=== PATIENT | male | born 1940 | race Asian ===

== ENCOUNTER 2017-02-18 15:05 | Outpatient (CLI) | payer MEDICARE ==
[2017-02-18 19:36] LABS: BASOPHILS % (AUTO) 0.4 %; EOSINOPHILS # (AUTO) 0.1 10^3/uL (0.0-0.7); EOSINOPHILS % (AUTO) 1.3 %; HCT - HEMATOCRIT 50.1 % (42.0-52.0); HGB - HEMOGLOBIN 16.5 g/dL (14.0-18.0); LYMPHOCYTES # (AUTO) 1.8 10^3/uL (1.5-3.5); LYMPHOCYTES % (AUTO) 35.9 %; MEAN CORPUSCULAR HGB CONC 32.9 g/dL (32.0-36.0); MEAN CORPUSCULAR VOLUME 88.2 fL (80.0-94.0); MEAN PLATELET VOLUME 8.8 fL (7.4-11.4); MONOCYTES # (AUTO) 0.9 10^3/uL (0.0-1.0); MONOCYTES % (AUTO) 18.3 %; NEUTROPHILS # (AUTO) 2.2 10^3/uL (1.5-6.6); NEUTROPHILS % (AUTO) 44.1 %; NUCLEATED RED BLOOD CELLS AUTO 0.1 /100WBC; RED BLOOD COUNT 5.68 10^6/uL (4.70-6.10); UNCORRECTED WHITE BLOOD COUNT 4.9 x10^3/uL; WHITE BLOOD COUNT 4.9 x10^3/uL (4.8-10.8)
[2017-02-18 19:45] LABS: ALBUMIN/GLOBULIN RATIO 1.1 (1.0-2.2); BILIRUBIN,TOTAL 0.5 mg/dL (0.2-1.0); BUN - BLOOD UREA NITROGEN 20 mg/dL (6-20); CALCIUM 8.8 mg/dL (8.5-10.3); CARBON DIOXIDE - CO2 28 mmol/L (21-32); CHLORIDE 94 mmol/L (101-111); CHOL/HDL RATIO 3.4 (<5.0); CHOLESTEROL 168 mg/dL; CREATININE 1.1 mg/dL (0.6-1.2); GFR - MDRD 65 (>89); GLUCOSE 125 mg/dL (70-100); HDL CHOLESTEROL 50 mg/dL; LDL/HDL RATIO 1.7 (<3.6); POTASSIUM 3.7 mmol/L (3.5-5.0); SODIUM 133 mmol/L (135-145); TOTAL PROTEIN 7.9 g/dL (6.7-8.2); TRIGLYCERIDES 159 mg/dL; URIC ACID 5.1 mg/dL (2.6-7.2); VLDL CHOLESTEROL 32 mg/dL
[2017-02-18 20:01] LABS: HEMOGLOBIN A1C 0.99 g/dL
== END 2017-02-18 15:06 | disposition home or self-care (01) ==
LOC: LAB.WCP 15:05
PROVIDERS: ATTEND Family Medicine
DX: R73.9 Hyperglycemia, unspecified (principal); E78.5 Hyperlipidemia, unspecified; M10.00 Idiopathic gout, unspecified site; C61 Malignant neoplasm of prostate
CPT/HCPCS: 36415; 80053; 80061; 83036; 84550; 85025

== ENCOUNTER 2020-07-08 19:29 | Emergency (ER) | payer MEDICARE ==
[2020-07-08] MEDS ORDERED: SODIUM CHLORIDE 0.9% 1,000 ML IV STA (20:32)
[2020-07-08 20:38] LABS: BASOPHILS % (AUTO) 0.4 %; EOSINOPHILS % (AUTO) 0.7 %; HCT - HEMATOCRIT 44.2 % (42.0-52.0); HGB - HEMOGLOBIN 14.3 g/dL (14.0-18.0); LYMPHOCYTES # (AUTO) 1.4 10^3/uL (1.5-3.5); LYMPHOCYTES % (AUTO) 25.3 %; MEAN CORPUSCULAR HEMOGLOBIN 29.2 pg (27.0-31.0); MEAN CORPUSCULAR HGB CONC 32.4 g/dL (32.0-36.0); MEAN CORPUSCULAR VOLUME 90.4 fL (80.0-94.0); MEAN PLATELET VOLUME 10.4 fL (7.4-11.4); MONOCYTES # (AUTO) 0.5 10^3/uL (0.0-1.0); MONOCYTES % (AUTO) 9.1 %; NEUTROPHILS # (AUTO) 3.7 10^3/uL (1.5-6.6); NEUTROPHILS % (AUTO) 64.1 %; PLT - PLATELET COUNT 181 10^3/uL (130-450); RED BLOOD COUNT 4.89 10^6/uL (4.70-6.10); RED CELL DISTRIBUTION WIDTH 13.5 % (12.0-15.0); WHITE BLOOD COUNT 5.7 x10^3/uL (4.8-10.8)
--- NOTE | 2020-07-08 20:51 | ED Physician Documentation ---
History of Present Illness - Stated complaint Stated Complaint: LIGHTHEADED - Chief complaint Chief Complaint: Neuro - History obtained from History obtained from: Patient - History of Present Illness Timing: Today Pain level max: 0 Pain level now: 0 - Additonal information Additional information: Patient is an 80-year-old male who presents to the emergency department stating he has had intermittent lightheadedness for the past few days. He does not feel dizzy. Does not feel off balance, does not feel near syncopal. He states that it feels like "when you try to put on a new pair of glasses". He is unable to describe this further. It does not bother him when he takes his 5 to 6 mile daily walks. Does not bother him when he is working in the garden. He states he just occasionally feels it. His recently had a cardiac arrest and cardiac event. He states that he has been under stress and has not been eating or drinking as much as he should. No chest pain. No shortness of breath. No numbness or tingling. No focal neurological deficits. Review of Systems Ten Systems: 10 systems reviewed and negative Constitutional: denies: Fever, Chills GI: denies: Vomiting, Diarrhea Skin: denies: Rash Musculoskeletal: denies: Neck pain, Back pain Neurologic: denies: Headache PD PAST MEDICAL HISTORY - Past Medical History Cardiovascular: High cholesterol Respiratory: Asthma Endocrine/Autoimmune: None GI: Ulcers, Colon polyps : Benign prostate hypertrophy, Nocturia, Other HEENT: None Psych: Claustrophobia Musculoskeletal: None Derm: Eczema - Past Surgical History Past Surgical History: Yes General: Colonoscopy, EGD HEENT: Cataracts, Detached retina repair - Present Medications Home Medications: Ambulatory Orders Medication Instructions Recorded Confirmed Beclomethasone 80 Mcg [Qvar 80] 1 - 2 puffs INH BID 02/11/13 07/08/20 Finasteride [Proscar] 5 mg PO DAILY 02/11/13 07/08/20 Montelukast [Singulair] 10 mg PO DAILY 02/11/13 07/08/20 Simvastatin 20 mg PO DAILY 02/11/13 07/08/20 Tamsulosin [Flomax] 0.4 mg PO DAILY 02/11/13 07/08/20 - Allergies Allergies/Adverse Reactions: Allergies Allergy/AdvReac Type Severity Reaction Status Date / Time Sulfa (Sulfonamide Allergy FEVER/RASH Verified 07/08/20 19:35 Antibiotics) SILK TAPE Allergy Rash Uncoded 07/08/20 19:35 - Social History Does the pt smoke?: No Smoking Status: Never smoker Does the pt drink ETOH?: Yes Does the pt have substance abuse?: No - Immunizations Immunizations are current?: Yes - POLST Patient has POLST: No PD ED PE NORMAL - Vitals Vital signs reviewed: Yes - General General: Alert and oriented X 3, No acute distress - HEENT HEENT: PERRL, Ears normal, Moist mucous membranes - Neck Neck: Supple, no meningeal sign - Cardiac Cardiac: RRR, Strong equal pulses - Respiratory Respiratory: No respiratory distress, Clear bilaterally - Abdomen Abdomen: Soft, Non tender, Non distended - Derm Derm: Warm and dry - Extremities Extremities: No edema - Neuro Neuro: Alert and oriented X 3, lab technician 2-12 intact, No motor deficit, No sensory deficit, Normal speech - Psych Psych: Normal mood, Normal affect - Free text exam Free text exam: NIH stroke scale of 0. Normal gait. Normal cerebellar test Results - Vitals Vitals: Vital Signs - 24 hr 07/08/20 07/08/20 07/08/20 19:35 21:19 21:22 Temperature 36.5 C 36.8 C 36.8 C Heart Rate 73 72 72 Respiratory 19 24 22 Rate Blood Pressure 167/62 H 146/70 H 146/70 H O2 Saturation 100 100 100 Oxygen O2 Source Room air - EKG (time done) 1936 Rate: Rate (enter#) (69) Rhythm: NSR Cyclone: Normal Intervals: Normal MO QRS: Normal, LVH Ischemia: Normal ST segments - Labs Labs: Laboratory Tests 07/08/20 07/08/20 07/08/20 19:44 19:57 19:57 WBC 5.7 RBC 4.89 Hgb 14.3 Hct 44.2 MCV 90.4 MCH 29.2 MCHC 32.4 RDW 13.5 Plt Count 181 MPV 10.4 Neut # (Auto) 3.7 Lymph # (Auto) 1.4 L Cache # (Auto) 0.5 Eos # (Auto) 0.0 Baso # (Auto) 0.0 Absolute Nucleated RBC 0.00 Nucleated RBC % 0.0 Sodium 136 Potassium 3.8 Chloride 100 L Carbon Dioxide 25 Anion Gap 11.0 BUN 21 H Creatinine 1.0 Estimated GFR (MDRD) 72 L Glucose 159 H POC Whole Bld Glucose 139 H Calcium 9.3 Total Bilirubin 0.5 AST 25 ALT 19 Alkaline Phosphatase 47 Troponin I High Sens Total Protein 7.1 Albumin 4.5 Globulin 2.6 Albumin/Globulin Ratio 1.7 Lipase 56 H 07/08/20 19:57 WBC RBC Hgb Hct MCV MCH MCHC RDW Plt Count MPV Neut # (Auto) Lymph # (Auto) Cache # (Auto) Eos # (Auto) Baso # (Auto) Absolute Nucleated RBC Nucleated RBC % Sodium Potassium Chloride Carbon Dioxide Anion Gap BUN Creatinine Estimated GFR (MDRD) Glucose POC Whole Bld Glucose Calcium Total Bilirubin AST ALT Alkaline Phosphatase Troponin I High Sens 5.2 Total Protein Albumin Globulin Albumin/Globulin Ratio Lipase PD MEDICAL DECISION MAKING - ED course Complexity details: reviewed results, re-evaluated patient, considered differential, d/w patient ED course: Patient with an elevated BUN to creatinine ratio, given IV fluids and symptoms resolved. Feels much better. Normal cerebellar test. Normal gait. No focal neuro deficits. No evidence of cardiac etiology. Patient counseled regarding signs and symptoms for which I believe and urgent re-evaluation would be necessary. Patient with good understanding of and agreement to plan and is comfortable going home at this time This document was made in part using voice recognition software. While efforts are made to proofread this document, sound alike and grammatical errors may occur. Departure - Departure Disposition: 01 Home, Self Care Clinical Impression: Dehydration Condition: Good Instructions: ED Dehydration Follow-Up: Jonah Haynes DO [Primary Care Provider] - Within 1 week Comments: Follow up with your doctor for further care. Your labs appear to be consistent with dehydration at this time. Drink plenty of water. Discharge Date/Time: 07/08/20 21:41
[2020-07-08 20:53] LABS: ALBUMIN 4.5 g/dL (3.2-5.5); ALBUMIN/GLOBULIN RATIO 1.7 (1.0-2.2); BILIRUBIN,TOTAL 0.5 mg/dL (0.2-1.0); CALCIUM 9.3 mg/dL (8.5-10.3); POTASSIUM 3.8 mmol/L (3.5-5.0); TOTAL PROTEIN 7.1 g/dL (6.7-8.2)
[2020-07-08 21:20] VITALS: BP 146/70
--- OUTSIDE RECORDS SUMMARY | 2020-07-13 02:22 | EXTERNAL MEDICAL SUMMARY RPT | Continuity of Care Document ---
:1940 Demographics Phone Unavailable Preferred Language Unknown Marital Status Unknown Christian Affiliation Unknown Race Unknown Ethnic Group Unknown Author Organization [facility] Address [address] [place] [address] Phone Social History date description facility [phone]
== END 2020-07-08 21:41 | disposition home or self-care (01) ==
LOC: ED 19:29
DX: E86.0 Dehydration (principal)
CPT/HCPCS: 36415; 80053; 83690; 84484; 85025; 93005; 96360; 99284

== ENCOUNTER 2021-01-19 14:53 | Outpatient (CLI) | payer MEDICARE ==
--- NOTE | 2021-01-19 15:24 | XRAY Report ---
PROCEDURE: Ankle 3 View LT INDICATIONS: ANKLE PAIN,LEFT TECHNIQUE: 3 views of the ankle were acquired. COMPARISON: None. FINDINGS: BONES: No acute, displaced fracture or dislocation. The ankle mortise is maintained on these nonstre ssed views. SOFT TISSUES: No focal abnormality. IMPRESSION: 1.No acute osseous abnormality. Reviewed by: Helio Ross MD on 01/19/2021 3:23 PM PDT Approved by: Helio Ross MD on 01/19/2021 3:23 PM PDT Station ID: [id number]
== END 2021-01-19 14:54 | disposition home or self-care (01) ==
LOC: DI 14:53
PROVIDERS: ATTEND Family Medicine
DX: M25.572 Pain in left ankle and joints of left foot (principal)

== ENCOUNTER 2021-02-27 08:15 | Outpatient (CLI) | payer MEDICARE ==
--- NOTE | 2021-02-27 09:16 | XRAY Report ---
PROCEDURE: Ankle 3 View LT INDICATIONS: L ANKLE PX TECHNIQUE: 3 views of the ankle were acquired. COMPARISON: None FINDINGS: Bones: No fractures or dislocations. Ankle mortise is normally aligned. No suspicious bony lesions . Soft tissues: No tibiotalar joint effusion. Achilles tendon appears normal. IMPRESSION: No acute abnormality of the left ankle. Reviewed by: Mark Irwin on 02/27/2021 9:15 AM [facility] Approved by: Mark Irwin on 02/27/2021 9:15 AM [facility] Station ID: [id number]
== END 2021-02-27 23:59 | disposition home or self-care (01) ==
LOC: DI.N 08:15
PROVIDERS: ATTEND Physician Assistant
DX: M25.572 Pain in left ankle and joints of left foot (principal)

== ENCOUNTER 2022-08-30 08:00 | Outpatient (CLI) | payer MEDICARE ==
[2022-08-30 18:29] LABS: MICROALBUM/CREATININE RATIO,UR 4.8 ug/mg (<30.0); MICROALBUMIN,URINE 0.8 mg/dL (0-300.0)
== END 2022-08-30 23:59 | disposition home or self-care (01) ==
LOC: LAB.WCP 08:00
PROVIDERS: ATTEND Physician Assistant
DX: E11.9 Type 2 diabetes mellitus without complications (principal)
CPT/HCPCS: 82043; 82570